=== PATIENT | female | born 1945 | race Caucasian/White ===

== ENCOUNTER → 2016-11-11 | Outpatient (CLI) | payer MEDICARE ==
[~2016-11-11] MED LIST: ALDACTONE25 MG PO; AMLOD-VALSA-HC1 EACH PO; CYMBALTA60 MG PO; DESLORATADINE5 M1 PO; DYMISTA NASAL S23 GM; GLIMEPIRIDE1 MG PO; LEVAQUIN TAB 5500 MG PO; LEVOXYL75 MCG PO; MELOXICAM15 MG PO; MOBIC15 MG PO; NEXIUM 24HR22.3 MG PO; PRAVASTATIN SOD40 MG PO; VITAMIN D50000 UNIT PO
== END ==
LOC: OPSV 10:36
DX: D84.9 Immunodeficiency, unspecified (principal)
CPT/HCPCS: 36415; 82784; 96365; 96366; J1572

== ENCOUNTER 2016-12-11 07:20 | Inpatient (IN) | payer MEDICARE ==
[~2016-12-11] VITALS: Ht 162.6 cm; Wt 81.6 kg
[2016-12-11 07:58] LABS: HEMOGLOBIN 12.8 gm/dl (12.3-15.3); RED BLOOD COUNT 4.83 M/UL (4.00-5.10); WHITE BLOOD COUNT 11.2 K/UL (4.5-11.0)
[2016-12-11 08:18] LABS: BUN/CREATININE RATIO 32 (0-10)
[2016-12-11] MEDS ORDERED: AMLOD-VALSA-HC1 EACH PO (18:52)
[2016-12-11] MEDS ORDERED: VITAMIN D50000 UNIT PO (18:56)
[2016-12-11] MEDS ORDERED: DESLORATADINE5 M1 PO (18:58)
[2016-12-11] MEDS ORDERED: DYMISTA NASAL S23 GM (19:01)
[2016-12-11] MEDS ORDERED: MELOXICAM15 MG PO (19:02)
[2016-12-11] MEDS ORDERED: LEVOXYL75 MCG PO (19:02)
[2016-12-11] MEDS ORDERED: PRAVASTATIN SOD40 MG PO (19:03)
[2016-12-11] MEDS ORDERED: GLIMEPIRIDE1 MG PO (19:03)
[2016-12-11] MEDS ORDERED: CYMBALTA60 MG PO (19:03)
[2016-12-11] MEDS ORDERED: ALDACTONE25 MG PO (19:04)
[2016-12-11] MEDS ORDERED: MOBIC15 MG PO (19:09)
[2016-12-11] MEDS ORDERED: NEXIUM 24HR22.3 MG PO (19:10)
[2016-12-11 19:19] LABS: HEMOGLOBIN 11.4 gm/dl (12.3-15.3); WHITE BLOOD COUNT 8.6 K/UL (4.5-11.0)
[2016-12-11 19:20] LABS: RED BLOOD COUNT 4.3 M/UL (4.00-5.10)
[2016-12-12 07:38] LABS: RED BLOOD COUNT 4.52 M/UL (4.00-5.10)
[2016-12-12 07:57] LABS: WHITE BLOOD COUNT 5.1 K/UL (4.5-11.0)
[2016-12-12 07:58] LABS: BUN/CREATININE RATIO 25 (0-10)
[2016-12-14] MEDS ORDERED: LEVAQUIN TAB 5500 MG PO (13:39)
== END 2016-12-14 17:29 | disposition home or self-care (01) | DRG 871 ==
LOC: ER1 07:20 → M/S 09:45 → ZEROF 09:45 → M/S 18:23
PROVIDERS: Emergency Medicine; ADMIT Internal Medicine
DX: A41.9 Sepsis, unspecified organism (principal); J96.01 Acute respiratory failure with hypoxia; J18.9 Pneumonia, unspecified organism; D83.8 Other common variable immunodeficiencies; E87.1 Hypo-osmolality and hyponatremia; E87.3 Alkalosis; I10 Essential (primary) hypertension; E11.9 Type 2 diabetes mellitus without complications; Z88.3 Allergy status to other anti-infective agents; Z91.018 Allergy to other foods; Z82.49 Family history of ischemic heart disease and other diseases of the circulatory system; E78.5 Hyperlipidemia, unspecified; M19.91 Primary osteoarthritis, unspecified site; E07.9 Disorder of thyroid, unspecified; R05 Cough; R07.89 Other chest pain; D69.6 Thrombocytopenia, unspecified; Z79.899 Other long term (current) drug therapy
CPT/HCPCS: 36415; 36600; 71010; 80048; 80053; 81001; 82550; 82553; 82803; 82962; 83605; 83735; 83880; 84484; 85025; 86140; 87040; 93005; 94640; 94664; 96361; 96374; 99285; J1650; J1956; J7030

== ENCOUNTER → 2016-12-18 | Outpatient (CLI) | payer MEDICARE ==
[~2016-12-18] VITALS: Ht 162.6 cm; Wt 82.6 kg
== END ==
LOC: OPSV 11:52
DX: D84.9 Immunodeficiency, unspecified (principal)
CPT/HCPCS: 96365; 96366; J1568

== ENCOUNTER → 2016-12-22 | Outpatient (CLI) | payer MEDICARE | LOC: EXRD 14:35 | DX: J18.9 Pneumonia, unspecified organism (principal) | CPT/HCPCS: 71020 ==

== ENCOUNTER → 2017-01-12 | Outpatient (CLI) | payer MEDICARE | LOC: EXRD 13:24 | DX: R09.89 Other specified symptoms and signs involving the circulatory and respiratory systems (principal); R07.9 Chest pain, unspecified | CPT/HCPCS: 71020 ==

== ENCOUNTER → 2017-01-14 | Outpatient (CLI) | payer MEDICARE ==
[~2017-01-14] VITALS: Ht 162.6 cm; Wt 82.6 kg
== END ==
LOC: OPSV 10:00
DX: D84.9 Immunodeficiency, unspecified (principal)
CPT/HCPCS: 96365; 96366; J1568

== ENCOUNTER → 2017-02-10 | Outpatient (CLI) | payer MEDICARE ==
[~2017-02-10] VITALS: Ht 162.6 cm; Wt 82.6 kg
== END ==
LOC: OPSV 10:00
DX: D84.9 Immunodeficiency, unspecified (principal)
CPT/HCPCS: 96365; 96366; J1568

== ENCOUNTER → 2017-05-05 | Outpatient (CLI) | payer MEDICARE ==
[~2017-05-05] VITALS: Ht 162.6 cm; Wt 82.6 kg
== END ==
LOC: OPSV 05-04 10:00
DX: D84.9 Immunodeficiency, unspecified (principal)
CPT/HCPCS: 96365; 96366; J1568

== ENCOUNTER → 2020-08-28 | Outpatient (CLI) | payer MEDICARE ==
[~2020-08-28] MED LIST changes: +PYRIDIUM200 MG PO
== END ==
LOC: MAMO 09:50
DX: Z12.31 Encounter for screening mammogram for malignant neoplasm of breast (principal)
CPT/HCPCS: 77063; 77067

== ENCOUNTER → 2021-03-04 | Outpatient (CLI) | payer MEDICARE | LOC: KOH-I 02-27 09:45 | DX: M54.5 Low back pain (principal); M48.061 Spinal stenosis, lumbar region without neurogenic claudication; M51.26 Other intervertebral disc displacement, lumbar region; M48.07 Spinal stenosis, lumbosacral region; M51.36 Other intervertebral disc degeneration, lumbar region; M51.27 Other intervertebral disc displacement, lumbosacral region | CPT/HCPCS: 72148 ==

== ENCOUNTER → 2021-06-09 | Outpatient (CLI) | payer MEDICARE ==
[2021-06-09 16:05] LABS: BUN/CREATININE RATIO 30 (0-10)
== END ==
LOC: MRI 05-30 11:00
PROVIDERS: Orthopaedic Surgery
DX: R22.42 Localized swelling, mass and lump, left lower limb (principal); L85.9 Epidermal thickening, unspecified; M21.42 Flat foot [pes planus] (acquired), left foot
CPT/HCPCS: 36415; 73720; 80048; A9577

== ENCOUNTER → 2022-03-23 | Outpatient (CLI) | payer MEDICARE | LOC: EXRD 10:57 | DX: M81.0 Age-related osteoporosis without current pathological fracture (principal) | CPT/HCPCS: 77080 ==